=== PATIENT | female | born 1995 | race Caucasian/White ===

== ENCOUNTER 2020-11-13 16:46 | Emergency (ER) | payer OTHER ==
[2020-11-13 16:52] VITALS: BP 144/82; PULSE 107; RESP 18; TEMP 98.7
--- NOTE | 2020-11-13 17:07 | ED ---
General Adult HPI - General Chief complaint: ENT Stated complaint: nosebleed Time Seen by Provider: 11/13/20 16:53 Source: patient, RN notes reviewed, old records reviewed Mode of arrival: ambulatory Limitations: no limitations - History of Present Illness Initial comments: 25-year-old female who is otherwise healthy presenting for evaluation nosebleed. Nosebleed did stop prior to arrival. She states this came from her left nostril. She denies trauma to the nose. Denies URI symptoms. She states that her home is dry. She states that there is been no more bleeding from her nose but she has had some mucus with blood that she's been coughing up. Denies hemoptysis. No fever. - Related Data Home Medications Medication Instructions Recorded Confirmed Vit No.124/Iron/Folic 1 tab PO DAILY 11/07/14 11/07/14 [ Vitamin Tablet] Previous Rx's Medication Instructions Recorded Ibuprofen [Motrin] 600 mg PO Q6HR PRN #60 tab 11/09/14 Allergies Allergy/AdvReac Type Severity Reaction Status Date / Time No Known Allergies Allergy Verified 11/15/20 15:43 Review of Systems ROS Statement: Those systems with pertinent positive or pertinent negative responses have been documented in the HPI. ROS Other: All systems not noted in ROS Statement are negative. Past Medical History Past Medical History: No Reported History History of Any Multi-Drug Resistant Organisms: None Reported Past Surgical History: No Surgical Hx Reported Past Anesthesia/Blood Transfusion Reactions: No Reported Reaction Past Psychological History: No Psychological Hx Reported Smoking Status: Current every day smoker, Vaper Past Alcohol Use History: None Reported Past Drug Use History: None Reported - Past Family History Mother Family Medical History: Cancer General Exam Limitations: no limitations General appearance: alert, in no apparent distress Head exam: Present: atraumatic, normocephalic Eye exam: Present: normal appearance, PERRL ENT exam: Present: normal exam, other (No active bleeding, no oropharyngeal swelling, minimal dried blood at the left knee area.) Neck exam: Present: normal inspection. Absent: tenderness, meningismus Respiratory exam: Present: normal lung sounds bilaterally. Absent: respiratory distress, wheezes Cardiovascular Exam: Present: regular rate, normal rhythm GI/Abdominal exam: Present: soft. Absent: distended, tenderness, guarding Extremities exam: Present: normal inspection, normal capillary refill. Absent: pedal edema Neurological exam: Present: alert, oriented X3, CN II-XII intact. Absent: motor sensory deficit Psychiatric exam: Present: normal affect, normal mood Skin exam: Present: warm, dry, intact. Absent: cyanosis, diaphoretic Course Vital Signs 11/13/20 16:49 Temperature 98.7 F Pulse Rate 107 H Respiratory 18 Rate Blood Pressure 144/82 O2 Sat by Pulse 100 Oximetry Medical Decision Making - Medical Decision Making 25 yo female with nosebleed, resolved prior to arrival, no active bleeding. Will follow with primary care physician. Disposition Clinical Impression: Epistaxis Disposition: HOME SELF-CARE Condition: Good Instructions (If sedation given, give patient instructions): Nosebleed (ED) Is patient prescribed a controlled substance at d/c from ED?: No Referrals: None,Stated [Primary Care Provider] - 1-2 days Chao Cardoso MD [STAFF PHYSICIAN] - 1-2 days Time of Disposition: 17:07
[2020-11-13] MEDS ORDERED: OXYMETAZOLINE 0.05% NASL SPRAY 1 SPRAY BOTTLE NASAL STA (17:16)
== END 2020-11-13 17:49 | disposition home or self-care (01) ==
LOC: EC 16:46
DX: R04.0 Epistaxis (principal); F17.200 Nicotine dependence, unspecified, uncomplicated
CPT/HCPCS: 99283

== ENCOUNTER 2020-11-15 15:39 | Emergency (ER) | payer OTHER ==
[2020-11-15 15:43] VITALS: RESP 20
[2020-11-15] MEDS ORDERED: OXYMETAZOLINE 0.05% NASL SPRAY 1 SPRAY BOTTLE NASAL STA (16:20)
--- NOTE | 2020-11-15 17:02 | ED ---
ENT HPI - General Chief complaint: ENT Stated complaint: Blood in throat Time Seen by Provider: 11/15/20 15:59 Source: patient Mode of arrival: ambulatory Limitations: no limitations - History of Present Illness Initial comments: Patient is a 25-year-old female presenting to the emergency Department with complaints of a nosebleed. Patient states she was here 2 days ago for same complaint, was given Afrin to use for any additional nosebleeds. Patient states it did help yesterday but when she went to use it again today she still feeling bleeding but in the back of her throat. She feels like it is very light but very irritating. She states it was coming out of her left nostril but now she feels like it is draining in the back. She denies being on a blood thinner. She denies any injuries or trauma to her nose. She has no further complaints at this time. - Related Data Home Medications Medication Instructions Recorded Confirmed Vit No.124/Iron/Folic 1 tab PO DAILY 11/07/14 11/07/14 [ Vitamin Tablet] Previous Rx's Medication Instructions Recorded Ibuprofen [Motrin] 600 mg PO Q6HR PRN #60 tab 11/09/14 Allergies Allergy/AdvReac Type Severity Reaction Status Date / Time No Known Allergies Allergy Verified 11/15/20 15:43 Review of Systems ROS Statement: Those systems with pertinent positive or pertinent negative responses have been documented in the HPI. ROS Other: All systems not noted in ROS Statement are negative. Past Medical History Past Medical History: No Reported History History of Any Multi-Drug Resistant Organisms: None Reported Past Surgical History: No Surgical Hx Reported Past Anesthesia/Blood Transfusion Reactions: No Reported Reaction Past Psychological History: No Psychological Hx Reported Smoking Status: Current every day smoker, Vaper Past Alcohol Use History: None Reported Past Drug Use History: None Reported - Past Family History Mother Family Medical History: Cancer General Exam - General Exam Comments Initial Comments: GENERAL: Patient is well-developed and well-nourished. Patient is nontoxic and in no acute distress. HEAD: Atraumatic, normocephalic. EYES: Pupils equal round and reactive to light, extraocular movements intact, sclera anicteric, conjunctiva are normal. Eyelids were unremarkable. ENT: TMs normal, nares patent, oropharynx clear without exudates. Moist mucous membranes. Patient has a little bit of dried blood in the left nostril, no active bleeding. There is a small amount of blood in the posterior throat, no active bleeding seen. NECK: Normal range of motion, supple without lymphadenopathy or JVD. LUNGS: Unlabored respirations. Breath sounds clear to auscultation bilaterally and equal. No wheezes rales or rhonchi. HEART: Regular rate and rhythm without murmurs, rubs or gallops. ABDOMEN: Soft, nontender, normoactive bowel sounds. No guarding, no rebound. No masses appreciated. : Deferred MUSCULOSKELETAL: Normal extremities with adequate strength and normal range of motion, no pitting or edema. No clubbing or cyanosis. NEUROLOGICAL: Patient is alert and oriented x 3. Motor and sensory are also intact. Cranial nerves II through XII grossly intact. Symmetrical smile. Normal speech, normal gait. PSYCH: Normal mood, normal affect. SKIN: Warm, Dry, normal turgor, no rashes or lesions noted. Limitations: no limitations Course Vital Signs 11/15/20 15:41 Temperature 97.9 F Pulse Rate 90 Respiratory 20 Rate Blood Pressure 132/84 O2 Sat by Pulse 99 Oximetry Medical Decision Making - Medical Decision Making Patient is a 25-year-old female here for a nosebleed that continues to drain in the back of her throat. She was here 2 days ago for same complaint. On exam, there is no active bleeding but she does have a small amount of blood in the back of her throat. We did an Afrin spray and left nostril as well as some pressure for about 20 minutes. Upon reexamination, patient has no active bleeding, no signs of blood in her pierced ear throat. I discussed with patient that she needs to keep the left nostril well moisturized with Vaseline. I also recommended the same procedures if she starts having a bloody nose again. She is taking home the nose clamp. She can also continue with Afrin spray as needed for additional nosebleeds. If symptoms persist, recommended following up with an ENT. She is in agreement with this plan of care. She is stable for discharge. Return parameters were discussed with the patient she verbalized understanding. Case discussed with Dr. Han. Disposition Clinical Impression: Epistaxis Disposition: HOME SELF-CARE Condition: Stable Instructions (If sedation given, give patient instructions): Nosebleed (ED) Additional Instructions: Please return to the Emergency Department if symptoms worsen or any other concerns. Please use same format as described in the ER, pressure, leaning forward. Keep the nostrils well moisturized. If symptoms persist, follow-up with ENT. Is patient prescribed a controlled substance at d/c from ED?: No Referrals: None,Stated [Primary Care Provider] - 1-2 days Celestino Shipley MD [STAFF PHYSICIAN] - 1-2 days
[2020-11-15 17:15] VITALS: BP 128/78; PULSE 84; TEMP 98
== END 2020-11-15 17:13 | disposition home or self-care (01) ==
LOC: EC 15:39
DX: R04.0 Epistaxis (principal); F17.290 Nicotine dependence, other tobacco product, uncomplicated; Z79.1 Long term (current) use of non-steroidal anti-inflammatories (NSAID)
CPT/HCPCS: 99283